=== PATIENT | female | born 1975 | race Two or more races ===

== ENCOUNTER 2023-11-04 15:44 | Emergency (ER) | payer MEDICAID ==
[~2023-11-04] VITALS: Ht 157.5 cm; Wt 77.6 kg
[2023-11-04] MEDS ORDERED: KETOROLAC TROMETHAMINE INJ 30 MG/ML VIAL ONE (16:29)
[2023-11-04] MEDS: KETOROLAC TROMETHAMINE INJ 30 MG/ML VIAL IM ONE (16:35)
[2023-11-04 16:37] VITALS: BP 137/67; TEMP 98.4
[2023-11-04] MEDS ORDERED: IBUP-1953 PO (17:13)
[2023-11-04 17:22] VITALS: O2SAT 100
== END 2023-11-04 17:23 | disposition home or self-care (01) ==
LOC: ER 15:46
DX: M25.562 Pain in left knee (principal)
CPT/HCPCS: 29505; 73564; 96372; 99283; J1885